=== PATIENT | male | born 1965 | race Caucasian/White ===

== ENCOUNTER 2018-12-26 04:40 | Emergency (ER) | payer OTHER, MEDICAID ==
[2018-12-26] MEDS: morphine 4 MG/ML VIAL IM (05:39)
[2018-12-26 06:28] LABS: URINE PH (Dip) POC 5.5 (5.0-8.5)
[2018-12-26 06:28] LABS: URINE BLOOD (Dip) POC Negative (NEGATIVE); URINE GLUCOSE (Dip) POC Negative (NEGATIVE); URINE KETONES (Dip) POC Trace (NEGATIVE); URINE LEUKOCYTE EST (Dip) POC Negative (NEGATIVE); URINE NITRITE (Dip) POC Negative (NEGATIVE); URINE TOTAL PROTEIN POC Negative (NEGATIVE)
== END 2018-12-26 06:58 | disposition home or self-care (01) ==
LOC: FTE 04:40
DX: S70.01XA Contusion of right hip, initial encounter (principal); I10 Essential (primary) hypertension; F17.210 Nicotine dependence, cigarettes, uncomplicated; S30.94XA Unspecified superficial injury of scrotum and testes, initial encounter; W01.198A Fall on same level from slipping, tripping and stumbling with subsequent striking against other object, initial encounter; Y92.9 Unspecified place or not applicable
CPT/HCPCS: 73520; 76870; 81003; 96372; 99285-25